=== PATIENT | female | born 1990 | race American Indian/Alaskan Native ===

== ENCOUNTER 2017-07-26 21:51 | Emergency (ER) | payer OTHER ==
[2017-07-26 22:19] VITALS: BP 107/65
[2017-07-26 22:54] LABS: Basophils % (Auto) 0.6 % (0.0-1.8); Eosinophils # (Auto) 0.2 K/mm3 (0.0-0.4); Eosinophils % (Auto) 2.4 % (0.0-4.3); Hematocrit 37.4 % (30.3-42.9); Hemoglobin 12.9 gm/dl (10.1-14.3); Lymphocytes # (Auto) 2.1 K/mm3 (1.2-5.4); Lymphocytes % (Auto) 30.4 % (13.4-35.0); Mean Corpuscular HGB Conc 35 % (30-34); Mean Corpuscular Hemoglobin 31 pg (28-32); Mean Corpuscular Volume 88 fl (79-97); Monocytes # (Auto) 0.7 K/mm3 (0.0-0.8); Monocytes % (Auto) 9.6 % (0.0-7.3); Platelet Count 254 K/mm3 (140-440); Red Blood Count 4.24 M/mm3 (3.65-5.03); Red Cell Distribution Width 12.8 % (13.2-15.2)
[2017-07-26 23:15] LABS: Bilirubin,Urine NEG (Negative); Blood,Urine NEG (Negative); Color,Urine Yellow (Yellow); Mucus,Urine FEW /HPF; Protein,Urine <15 mg/dL mg/dL (Negative)
[2017-07-26 23:16] LABS: Alanine Aminotransferase 11 units/L (7-56); Albumin 4.1 g/dL (3.9-5); BUN/Creatinine Ratio 27; Blood Urea Nitrogen 16 mg/dL (7-17); Calcium 9.1 mg/dL (8.4-10.2); Hemolysis Index 9
--- NOTE | 2017-07-27 00:20 | Emergency Department Report ---
ED General Adult HPI - General Chief complaint: Abdominal Pain Stated complaint: PAIN IN THE STOMACH,VOMIT,GETS HOT/COLD Time Seen by Provider: 07/26/17 23:28 Source: patient Mode of arrival: Ambulatory Limitations: No Limitations - History of Present Illness Initial comments: Patient presents to emergency department complaining of left sided pelvic pain. Patient stated the pain started this morning. Patient also states that she discovered within the last couple days that she is with her last menstrual cycle being 06/14/2017. Patient denies a vaginal discharge or bleeding. There are no other associated symptoms -: Sudden Location: pelvis Radiation: non-radiation Severity scale (0 -10): 2 Quality: dull Consistency: constant Improves with: none Worsens with: none Associated Symptoms: denies other symptoms Treatments Prior to Arrival: none - Related Data Previous Rx's Medication Instructions Recorded Last Taken Type Amoxicillin [Amoxicillin TAB] 875 mg PO BID #20 tablet 09/30/15 Unknown Rx Allergies Allergy/AdvReac Type Severity Reaction Status Date / Time No Known Allergies Allergy Verified 07/26/17 22:11 ED Review of Systems ROS: Stated complaint: PAIN IN THE STOMACH,VOMIT,GETS HOT/COLD Other details as noted in HPI Comment: Unobtainable due to pts medical conditions Constitutional: denies: chills, fever Eyes: denies: eye pain, eye discharge, vision change ENT: denies: ear pain, throat pain Respiratory: denies: cough, shortness of breath, wheezing Cardiovascular: denies: chest pain, palpitations Endocrine: no symptoms reported Gastrointestinal: abdominal pain. denies: nausea, diarrhea Genitourinary: denies: urgency, dysuria, discharge Musculoskeletal: denies: back pain, joint swelling, arthralgia Skin: denies: rash, lesions Neurological: denies: headache, weakness, paresthesias Psychiatric: denies: anxiety, depression Hematological/Lymphatic: denies: easy bleeding, easy bruising ED Past Medical Hx - Past Medical History Previous Medical History?: No - Surgical History Past Surgical History?: No - Social History Smoking Status: Never Smoker Substance Use Type: Alcohol - Medications Home Medications: Home Medications Medication Instructions Recorded Confirmed Last Taken Type Amoxicillin [Amoxicillin TAB] 875 mg PO BID #20 tablet 09/30/15 Unknown Rx ED Physical Exam - General Limitations: No Limitations General appearance: alert, in no apparent distress - Head Head exam: Present: atraumatic, normocephalic - Eye Eye exam: Present: normal appearance - ENT ENT exam: Present: mucous membranes moist - Neck Neck exam: Present: normal inspection - Respiratory Respiratory exam: Present: normal lung sounds bilaterally. Absent: respiratory distress - Cardiovascular Cardiovascular Exam: Present: regular rate, normal rhythm. Absent: systolic murmur, diastolic murmur, rubs, gallop - GI/Abdominal GI/Abdominal exam: Present: soft, normal bowel sounds. Absent: distended, tenderness - External exam: Present: other (exam deferred) Speculum exam: Present: other (exam deferred) Bi-manual exam: Present: other (exam deferred) - Extremities Exam Extremities exam: Present: normal inspection - Back Exam Back exam: Present: normal inspection - Neurological Exam Neurological exam: Present: alert, oriented X3 - Psychiatric Psychiatric exam: Present: normal affect, normal mood - Skin Skin exam: Present: warm, dry, intact, normal color. Absent: rash ED Course Vital Signs 07/26/17 07/26/17 22:11 23:30 Temperature 98.5 F Pulse Rate 79 Respiratory 16 20 Rate Blood Pressure 107/65 O2 Sat by Pulse 99 Oximetry ED Medical Decision Making - Lab Data Result diagrams: 07/26/17 22:41 07/26/17 22:41 - Medical Decision Making Discussed results with patient and the need for obstetrics and gynecology follow -up Critical care attestation.: If time is entered above; I have spent that time in minutes in the direct care of this critically ill patient, excluding procedure time. ED Disposition Clinical Impression: Pelvic pain during Disposition: DC-01 TO HOME OR SELFCARE Is pt being admited?: No Does the pt Need Aspirin: No Condition: Stable Instructions: Abdominal Pain (ED) Referrals: JENELLE AHMADI MD [Primary Care Provider] - 3-5 Days ADRI MCCAIN MD [Staff Physician] - 3-5 Days
--- NOTE | 2017-07-27 01:52 | Ultrasound Report ---
FINAL REPORT EXAM: US OB TRANSVAGINAL HISTORY: abdominal pain COMPARISON: None available. TECHNIQUE: Several real-time grayscale and color Doppler images were obtained. Transabdominal and transvaginal exam. FINDINGS: Uterus measures 10.2 x 5.9 x 6.3 centimeters. Single live IUP. Estimated gestational age 6 weeks 1 day. Estimated delivery date March 21, 2017. heart rate 87 beats per minute. Yolk sac is present. The left ovary is not visualized. No adnexal masses are demonstrated. The right ovary measures 3.5 x 2.4 x 3.1 centimeters. Two cystic structures in the right ovary measuring 1.81.5 centimeters. They may reflect follicles or corpus luteum. There is gross vascular flow to the right ovary. IMPRESSION: Single live IUP. Estimated gestational age 6 weeks 1 day. No adnexal masses are demonstrated. Left ovary is not visualized. There are 2 simple appearing cystic structures in the right ovary which may reflect physiologic follicles or corpus luteum.
--- NOTE | 2017-07-27 01:52 | Ultrasound Report ---
FINAL REPORT EXAM: US OB < = 14 WEEKS FETUS HISTORY: ectopic COMPARISON: None available. TECHNIQUE: Several real-time grayscale and color Doppler images were obtained. Transabdominal and transvaginal exam. FINDINGS: Uterus measures 10.2 x 5.9 x 6.3 centimeters. Single live IUP. Estimated gestational age 6 weeks 1 day. Estimated delivery date March 21, 2018. heart rate 87 beats per minute. Yolk sac is present. The left ovary is not visualized. No adnexal masses are demonstrated. The right ovary measures 3.5 x 2.4 x 3.1 centimeters. Two cystic structures in the right ovary measuring 1.81.5 centimeters. They may reflect follicles or corpus luteum. There is gross vascular flow to the right ovary. IMPRESSION: Single live IUP. Estimated gestational age 6 weeks 1 day. No adnexal masses are demonstrated. Left ovary is not visualized. There are 2 simple appearing cystic structures in the right ovary which may reflect physiologic follicles or corpus luteum.
== END 2017-07-27 02:10 | disposition home or self-care (01) ==
LOC: ED 21:51
DX: O26.891 Other specified pregnancy related conditions, first trimester (principal); R10.2 Pelvic and perineal pain; Z3A.01 Less than 8 weeks gestation of pregnancy
CPT/HCPCS: 36415; 76801; 76817; 80053; 81001; 84702; 84703; 85025

== ENCOUNTER 2019-04-02 20:59 | Emergency (ER) | payer SELFPAY ==
[2019-04-02 21:11] VITALS: BP 143/71
--- NOTE | 2019-04-02 21:20 | Event Note ---
ED Screening Note Date of service: 04/02/19 Time: 21:19 ED Screening Note: Pt complains of sore throat and painful swallowing x 4 days denies fever or sick contacts This initial assessment/diagnostic orders/clinical plan/treatment(s) is/are subject to change based on patients health status, clinical progression and re- assessment by fellow clinical providers in the ED. Further treatment and workup at subsequent clinical providers discretion. Patient/guardian urged not to elope from the ED as their condition may be serious if not clinically assessed and managed. Initial orders include:
--- NOTE | 2019-04-02 21:25 | Emergency Department Report ---
ED General Adult HPI - General Chief complaint: Sore Throat Stated complaint: THROAT SWOLLEN/PAIN Time Seen by Provider: 04/02/19 21:18 Source: patient Mode of arrival: Ambulatory Limitations: No Limitations - History of Present Illness Initial comments: Pt complains of sore throat x 4 days. Denies fever or sick contacts. Denies hx of recurrent strep -: Sudden Radiation: non-radiation Severity scale (0 -10): 10 Quality: aching Consistency: constant Improves with: other (none tried ) Worsens with: other (swallowing) Associated Symptoms: denies: denies other symptoms, cough, diaphoresis, fever/chills, headaches, loss of appetite, malaise, nausea/vomiting, rash, shortness of breath Treatments Prior to Arrival: none - Related Data Previous Rx's Medication Instructions Recorded Last Taken Type Amoxicillin [Amoxicillin TAB] 875 mg PO BID #20 tablet 09/30/15 Unknown Rx Amoxicillin [Trimox CAP] 1,000 mg PO BID 10 Days #20 capsule 04/02/19 Unknown Rx Ibuprofen [Motrin 800 MG tab] 800 mg PO Q8HR PRN 7 Days #21 04/02/19 Unknown Rx tablet Allergies Allergy/AdvReac Type Severity Reaction Status Date / Time No Known Allergies Allergy Verified 07/26/17 22:11 ED Review of Systems ROS: Stated complaint: THROAT SWOLLEN/PAIN Other details as noted in HPI Constitutional: denies: chills, diaphoresis, fever, malaise Eyes: denies: eye pain, eye discharge, vision change ENT: throat pain. denies: dental pain, congestion Respiratory: denies: cough, shortness of breath, wheezing Cardiovascular: denies: chest pain, palpitations Gastrointestinal: denies: abdominal pain, nausea, vomiting Musculoskeletal: as per HPI Skin: as per HPI Neurological: as per HPI ED Past Medical Hx - Past Medical History Previous Medical History?: No - Surgical History Past Surgical History?: No - Social History Smoking Status: Never Smoker Substance Use Type: None - Medications Home Medications: Home Medications Medication Instructions Recorded Confirmed Last Taken Type Amoxicillin [Amoxicillin TAB] 875 mg PO BID #20 tablet 09/30/15 Unknown Rx Amoxicillin [Trimox CAP] 1,000 mg PO BID 10 Days #20 capsule 04/02/19 Unknown Rx Ibuprofen [Motrin 800 MG tab] 800 mg PO Q8HR PRN 7 Days #21 04/02/19 Unknown Rx tablet ED Physical Exam - General Limitations: No Limitations General appearance: alert, in no apparent distress - Head Head exam: Present: atraumatic - Eye Eye exam: Present: normal appearance - Expanded ENT Exam Expanded Mouth exam: Absent: drooling, trismus, muffled voice Throat exam: Positive: tonsillar erythema, tonsillomegaly, tonsillar exudate, other (patient able to swallow without difficulty, no hot potatoe voice noted ). Negative: R peritonsillar mass, L peritonsillar mass - Neck Neck exam: Present: normal inspection, tenderness, lymphadenopathy (mild anterior cervical ) - Respiratory Respiratory exam: Present: normal lung sounds bilaterally. Absent: respiratory distress - Cardiovascular Cardiovascular Exam: Present: regular rate, normal rhythm, normal heart sounds - Rectal Rectal exam: Present: deferred - Neurological Exam Neurological exam: Present: alert, oriented X3 - Psychiatric Psychiatric exam: Present: normal affect, normal mood - Skin Skin exam: Present: warm, dry, intact, normal color. Absent: rash ED Course Vital Signs 04/02/19 21:04 Temperature 99.1 F Pulse Rate 102 H Respiratory 12 Rate Blood Pressure 143/71 O2 Sat by Pulse 97 Oximetry ED Medical Decision Making - Medical Decision Making Pt here with sore throat. Swollen tonsils with exudate noted on exam. No drooling or trismus noted. Pt afebrile with mild tachycardia. Centor's criteria= 3. Pt to d/c home with amoxil for strep. Recommend f/u with PCP Critical care attestation.: If time is entered above; I have spent that time in minutes in the direct care of this critically ill patient, excluding procedure time. ED Disposition Clinical Impression: Strep pharyngitis Disposition: DC-01 TO HOME OR SELFCARE Is pt being admited?: No Condition: Stable Instructions: Strep Throat (ED) Prescriptions: Ibuprofen [Motrin 800 MG tab] 800 mg PO Q8HR PRN 7 Days #21 tablet PRN Reason: Pain , Severe (7-10) Amoxicillin [Trimox CAP] 1,000 mg PO BID 10 Days #20 capsule Referrals: [facility] [Provider Group] - 3-5 Days
== END 2019-04-02 22:00 | disposition home or self-care (01) ==
LOC: ED 20:59
DX: J02.0 Streptococcal pharyngitis (principal); Z79.899 Other long term (current) drug therapy